=== PATIENT | male | born 1950 | race Caucasian/White ===

== ENCOUNTER 2017-06-10 20:45 | Emergency (ER) | payer MEDICARE, OTHER ==
[2017-06-10] MEDS ORDERED: Cyclobenzaprine 10 MG Tab PO ONE (20:46)
[2017-06-10] MEDS ORDERED: Ketorolac 10 MG Tab PO ONE (20:46)
--- NOTE | 2017-06-10 21:39 | EDM.PDOC ---
ED HPI GENERAL MEDICAL PROBLEM - General Chief Complaint: General Stated Complaint: NECK/BACK Time Seen by Provider: 06/10/17 21:15 Source of Information: Reports: Patient History Limitations: Reports: No Limitations - History of Present Illness INITIAL COMMENTS - FREE TEXT/NARRATIVE: Patient presents tonight to the ED with complaints of low back, neck pain and headache. Does admit he has a long history of low back discomfort but this felt different to him today. Has been having more back pain than usual and was out at [employer] [place] walking around all day today. States the pain has radiated up to his neck and around his temples. Feels his heart beat throbbing in the buddhist region. Him and his significant other were worried about this potentially being his heart. Denies any shortness of breath. No nausea or sweating. Patient has not taken any meds for the discomfort. Significant other states she was worried about this as she has cardiac issues herself. Onset: Today, Gradual Duration: Hour(s):, Constant Location: Reports: Back Quality: Reports: Ache, Throbbing Severity: Moderate Worsens with: Reports: Movement Associated Symptoms: Denies: Chest Pain, Fever/Chills, Nausea/Vomiting, Shortness of Breath, Weakness Treatments FORESTER AIDE: Reports: Acetaminophen Bilateral Upper Posterior Neck Pain Score (Numeric/FACES): 6 - Related Data Allergies Allergy/AdvReac Type Severity Reaction Status Date / Time No Known Allergies Allergy Verified 06/10/17 20:54 Home Meds: Home Meds Aspirin 325 mg PO DAILY 06/10/17 [History] Past Medical History HEENT History: Reports: Hard of Hearing, Impaired Vision, Other (See Below) Other HEENT History: HEARING AIDS. GLASSES Cardiovascular History: Reports: Hypertension, Other (See Below) Other Cardiovascular History: WAS ON BP MEDS FOR A WHILE THAN HIS DR TOOK HIM OFF THEM NOVEMBER 2016 Musculoskeletal History: Reports: Back Pain, Chronic, Neck Pain, Chronic - Past Surgical History HEENT Surgical History: Reports: Tonsillectomy Musculoskeletal Surgical History: Reports: Knee Replacement Social & Family History - Family History Family Medical History: Noncontributory - Tobacco Use Smoking Status *Q: Never Smoker - Caffeine Use Caffeine Use: Reports: Coffee, Soda - Recreational Drug Use Recreational Drug Use: No ED ROS GENERAL - Review of Systems Review Of Systems: See Below Constitutional: Denies: Fever, Chills, Malaise, Weakness, Fatigue, Decreased Appetite HEENT: Reports: No Symptoms Respiratory: Denies: Shortness of Breath, Wheezing, Cough Cardiovascular: Denies: Chest Pain, Edema, Lightheadedness Endocrine: Denies: Fatigue GI/Abdominal: Denies: Abdominal Pain, Nausea, Vomiting : Reports: No Symptoms Musculoskeletal: Reports: Neck Pain, Back Pain Neurological: Reports: Headache, Tingling (has carpal tunnel syndrome bilaterally) ED EXAM, GENERAL - Physical Exam Exam: See Below Exam Limited By: No Limitations General Appearance: Alert, WD/WN, No Apparent Distress Ears: Normal External Exam, Normal TMs Nose: Normal Inspection, Normal Mucosa, No Blood Throat/Mouth: Normal Inspection, Normal Oropharynx Head: Normocephalic Neck: Normal Inspection, Supple, Non-Tender, Tender Lateral Respiratory/Chest: No Respiratory Distress, Lungs Clear, Normal Breath Sounds Cardiovascular: Regular Rate, Rhythm, No Edema Back Exam: Normal Inspection, Decreased Range of Motion, Muscle Spasm, Vertebral Tenderness Neurological: Alert, Oriented Psychiatric: Normal Affect, Normal Mood Skin Exam: Warm, Dry Course - Vital Signs Last Recorded V/S: Last Vital Signs Temp 97.9 F 06/10/17 20:57 Pulse 69 06/10/17 21:45 Resp 18 06/10/17 21:08 BP 142/91 H 06/10/17 21:45 Pulse Ox 94 L 06/10/17 20:57 - Orders/Labs/Meds Orders: Active Orders 24 hr Category Date Time Status Cyclobenzaprine [Take Home: Cyclobenzaprine 10 MG, 4 Med 06/10/17 22:00 Once Tab Pack] 1 packet PO ONETIME ONE Ketorolac [Take Home: Ketorolac 10 MG, 4 Tab Pack] Med 06/10/17 22:00 Once 1 packet PO ONETIME ONE EKG 12 Lead [EK] Stat Ther 06/10/17 21:24 Ordered Labs: Laboratory Tests 06/10/17 06/10/17 Range/Units 21:25 21:25 WBC 6.2 (5.0-10.0) 10^3/uL RBC 4.68 (4.50-6.00) 10^6/uL Hgb 14.8 (14.0-18.0) g/dL Hct 42.9 (40.0-54.0) % MCV 91.7 (82.0-94.0) fL MCH 31.6 (27.0-32.0) pg MCHC 34.5 (33.0-38.0) g/dL RDW Coeff of [place]der 13.8 (11.0-15.0) % Plt Count 239 (150-400) 10^3/uL Neut % (Auto) 42.7 (35-85) % Lymph % (Auto) 43.7 (10-55) % [place] % (Auto) 11.6 (0-16) % Eos % (Auto) 1.8 (0-5) % Baso % (Auto) 0.2 (0-3) % Neut # (Auto) 2.66 (1.80-7.00) 10^3/uL Lymph # (Auto) 2.72 (1.00-4.80) 10^3/uL [place] # (Auto) 0.72 (0.00-0.80) 10^3/uL Eos # (Auto) 0.11 (0.00-0.45) 10^3/uL Baso # (Auto) 0.01 10^3/uL Sodium 145 (136-145) mEq/L Potassium 4.3 (3.5-5.0) mEq/L Chloride 107 H (98-106) mEq/L Carbon Dioxide 27 (21-32) mmol/L BUN 16 (7-18) mg/dL Creatinine 1.3 (0.7-1.3) mg/dL Est Cr Clr Drug Dosing 55.90 mL/min Estimated GFR (MDRD) 55 L (>=60) mL/min Glucose 103 H (75-99) mg/dL Calcium 8.9 (8.4-10.1) mg/dL Lactate Dehydrogenase 170 (100-190) U/L Creatine Kinase 85 (35-232) U/L Troponin I < 0.017 (0.00-0.06) ng/mL C-Reactive Protein < 0.2 L (0.2-0.8) mg/dL Meds: Medications Discontinued Medications Generic Name Dose Route Start Last Admin Trade Name Freq PRN Reason Stop Dose Admin Cyclobenzaprine HCl 1 packet 06/10/17 22:00 Take Home: Cyclobenzaprine 10 Mg, 4 Tab Pack PO 06/10/17 22:01 ONETIME ONE Ketorolac Tromethamine 1 packet 06/10/17 22:00 Take Home: Ketorolac 10 Mg, 4 Tab Pack PO 06/10/17 22:01 ONETIME ONE - Re-Assessments/Exams Free Text/Narrative Re-Assessment/Exam: 06/10/17 22:01 Patient's labs reviewed. All normal at this time. Offered injections for headache and back/neck pain but declined due to needing to drive back to [place]. Departure - Departure Time of Disposition: 22:03 Disposition: Home, Self-Care 01 Clinical Impression: Back pain, Tension headache - Discharge Information Forms: ED Department Discharge Additional Instructions: 1. Rest 2. Ice or heat to back/neck for discomfort 3. Flexeril 10 mg every 8 hours as needed for muscle spasms 4. Toradol 10 mg every 6 hours as needed for pain/inflammation 5. Follow up with your primary provider for ongoing pain and recheck on your blood pressure - My Orders Last 24 Hours: My Active Orders 06/10/17 21:24 EKG 12 Lead [EK] Stat 06/10/17 22:00 Cyclobenzaprine [Take Home: Cyclobenzaprine 10 MG, 4 Tab Pack] 1 packet PO ONETIME ONE Ketorolac [Take Home: Ketorolac 10 MG, 4 Tab Pack] 1 packet PO ONETIME ONE - Assessment/Plan Last 24 Hours: My Active Orders 06/10/17 21:24 EKG 12 Lead [EK] Stat 06/10/17 22:00 Cyclobenzaprine [Take Home: Cyclobenzaprine 10 MG, 4 Tab Pack] 1 packet PO ONETIME ONE Ketorolac [Take Home: Ketorolac 10 MG, 4 Tab Pack] 1 packet PO ONETIME ONE
[2017-06-10 21:46] VITALS: BP 142/91
[2017-06-10 21:49] LABS: CHLORIDE,CL 107 mEq/L (98-106); SODIUM,NA 145 mEq/L (136-145)
[2017-06-10] MEDS ORDERED: Take Home: Cyclobenzaprine 10 MG Tab, 4 Tab Pack PO ONE (22:00)
[2017-06-10] MEDS ORDERED: Take Home: Ketorolac 10 MG Tab, 4 Tab Pack PO ONE (22:00)
== END 2017-06-10 22:15 | disposition home or self-care (01) ==
LOC: CC.ED 20:45
DX: G44.209 Tension-type headache, unspecified, not intractable (principal); M54.5 Low back pain; I10 Essential (primary) hypertension; Z79.82 Long term (current) use of aspirin; Z90.49 Acquired absence of other specified parts of digestive tract
CPT/HCPCS: 36415; 80048; 82550; 83615; 84484; 85025; 86140; 99283; A9270; 93005; 93010